=== PATIENT | male | born 1940 | race Caucasian/White ===

== ENCOUNTER 2018-06-07 08:20 | Day surgery (SDC) | payer MEDICARE ==
[~2018-06-07] VITALS: Ht 177.8 cm; Wt 77.8 kg
[2018-06-07] VITALS (11 sets, daily range): BP systolic 119–140; BP diastolic 53–72
[~2018-06-07 08:20] MED LIST: AMLO5TAB9 PO; ANAG1CAP3 PO; ASCO500C6 PO; ASPI-555 PO; FERR15DR26 PO; FISH1CAP27 PO; IPRA3AMP24 IH; LORA10CA PO; METO50TA18 PO; MULT1CAP32 PO; NIAC500T22 PO; OMEP20CA10 PO; PRAV10TA39 PO
[2018-06-07] MEDS ORDERED: LIDOCAINE HCL 1% 20 ML VIAL ONE (08:43)
[2018-06-07 08:59] LABS: BASOPHILS % (AUTO) 0.8 % (0.0-5.0); EOSINOPHILS % (AUTO) 0.8 % (0.0-8.0); HEMATOCRIT 30.9 % (42-54); LYMPHOCYTES % (AUTO) 10.5 % (21.0-51.0); MEAN CORPUSCULAR HEMOGLOBIN 32.4 pg (27.0-33.0); MEAN CORPUSCULAR HGB CONC 33.8 g/dL (32.0-36.0); NEUTROPHILS % (AUTO) 82.9 % (40.0-77.0); NUCLEATED RED BLOOD CELLS 0.5 % (0.0-0.19); PLATELET COUNT (AUTO) 100 K/uL (130-400); RED BLOOD CELL COUNT(AUTO) 3.22 MIL/uL (4.50-6.20); RED CELL DISTRIBUTION WIDTH 19.1 % (11.0-15.5); WHITE BLOOD COUNT (AUTO) 11.4 K/uL (4.8-10.8)
[2018-06-07 09:07] LABS: CREATININE 2.2 mg/dL (0.5-1.5); POTASSIUM 4.9 mmol/L (3.5-5.1)
[2018-06-07 09:10] LABS: INR 1.03 (0.85-1.15); PARTIAL THROMBOPLASTIN TIME 28.7 SEC (26.3-35.5); PROTHROMBIN TIME 10.8 SEC (9.6-11.6)
[2018-06-07] MEDS ORDERED: SODIUM CHLORIDE 0.9% 1000ML 1,000 ML IV ONE (09:14)
[2018-06-07] MEDS ORDERED: FENTANYL CITRATE PF 50 MCG/1 ML 2ML VIAL ONE (11:05)
[2018-06-07] MEDS ORDERED: MIDAZOLAM HCL 1 MG/ML 2ML VIAL ONE (11:05)
--- NOTE | 2018-06-07 11:22 | NUR ---
transported to Radiology via stretcher in stable condition by [facility]
--- NOTE | 2018-06-07 11:35 | NUR ---
back to room Day Patient 8 in stable condition, was informed Dr Ha had been delayed by [facility]
--- NOTE | 2018-06-07 12:50 | NUR ---
transported to radiology via stretcher in stable condition by [facility]
--- NOTE | 2018-06-07 15:50 | NUR ---
CXR done at bedside
[2018-06-07] MEDS ORDERED: SODIUM BICARB 50MEQ 50ML VIAL ONE (16:31)
== END 2018-06-07 18:15 | disposition home or self-care (01) ==
LOC: DAH 08:20
PROVIDERS: ATTEND Internal Medicine Medical Oncology
DX: R91.1 Solitary pulmonary nodule (principal); D69.3 Immune thrombocytopenic purpura; Z98.890 Other specified postprocedural states; I12.9 Hypertensive chronic kidney disease with stage 1 through stage 4 chronic kidney disease, or unspecified chronic kidney disease; N18.4 Chronic kidney disease, stage 4 (severe); J44.9 Chronic obstructive pulmonary disease, unspecified; K21.9 Gastro-esophageal reflux disease without esophagitis; E78.5 Hyperlipidemia, unspecified; Z85.46 Personal history of malignant neoplasm of prostate; Z87.891 Personal history of nicotine dependence; Z79.899 Other long term (current) drug therapy; I25.10 Atherosclerotic heart disease of native coronary artery without angina pectoris
CPT/HCPCS: 32405; 36415; 71045; 77012; 80048; 85025; 85610; 85730; 87070; 88305; J2250; J3010; J3490; J7030; 99152; 99153